=== PATIENT | male | born 1960 | race Two or more races ===

== ENCOUNTER 2019-09-05 12:44 | Inpatient (IN) | payer MEDICAID, OTHER ==
[~2019-09-05] VITALS: Ht 152.4 cm; Wt 85.3 kg
[2019-09-05] MEDS ORDERED: HYDROCODONE/ACETAMINOPHEN 5/325MG TABLET PO STA (13:18)
[2019-09-05 14:43] LABS: BASOPHILS % 0.4 % (0.0-2.0); EOSINOPHILS % 0.8 % (0.0-5.0); HEMATOCRIT. 38.2 % (42.0-52.0); HEMOGLOBIN. 13.2 g/dL (14.0-18.0); LYMPHOCYTES % 11.8 % (20.0-50.0); MEAN CORPUSCULAR HEMOGLOBIN 30.5 pg (28.0-32.0); MEAN CORPUSCULAR VOLUME 88.5 fL (80.0-94.0); MEAN PLATELET VOLUME 6.1 fl (7.4-10.4); MONOCYTES % 6.2 % (2.0-8.0); NEUTROPHILS % 80.8 % (40.0-76.0); PLATELET 234 x1000/uL (130-400); RED BLOOD CELL COUNT 4.32 mill/uL (4.7-6.1); RED CELL DISTRIBUTION WIDTH 12.5 % (11.6-14.6)
[2019-09-05 14:51] LABS: CHLORIDE 108 mEq/L (98-107)
[2019-09-05 14:55] LABS: D-DIMER 1.1 mg/L FEU (<0.50); INR 1.1; PROTHROMBIN TIME 11.5 sec (9.6-11.0)
[2019-09-05] MEDS ORDERED: ONDANSETRON HCL 4MG/2ML INJ IV PRN (17:45)
[2019-09-05] MEDS ORDERED: HYDROCODONE/ACETAMINOPHEN 5/325MG TABLET PO PRN (17:45)
[2019-09-05] MEDS ORDERED: ACETAMINOPHEN 650MG/20.3ML UDC GT PRN (17:45)
[2019-09-05] MEDS ORDERED: MAGNESIUM/ALUMINUM HYDROXIDE/SIMETHICONE 30ML UDC PO PRN (17:45)
[2019-09-05] MEDS ORDERED: CLONIDINE 0.1MG TABLET PO PRN (17:45)
[2019-09-05] MEDS ORDERED: DOCUSATE SODIUM 100MG CAPSULE PO PRN (17:45)
[2019-09-05] MEDS ORDERED: IOHEXOL-350 100 ML BOTTLE ONE (18:56)
[2019-09-05 21:52] VITALS: BP 133/90
[2019-09-05 22:55] VITALS: BP 133/90
[2019-09-06 00:24] LABS: CREATINE KINASE 99 IU/L (39-308)
[2019-09-06 00:26] LABS: CREATINE KINASE MB FRACTION 1.1 ng/mL (0.5-3.6)
[2019-09-06 04:00] VITALS: BP 108/64
[2019-09-06 07:20] LABS: CHLORIDE 108 mEq/L (98-107)
[2019-09-06 07:23] LABS: BASOPHILS % 0.3 % (0.0-2.0); EOSINOPHILS % 3.5 % (0.0-5.0); HEMATOCRIT. 39.5 % (42.0-52.0); HEMOGLOBIN. 13.6 g/dL (14.0-18.0); LYMPHOCYTES % 20.8 % (20.0-50.0); MEAN CORPUSCULAR HEMOGLOBIN 30.8 pg (28.0-32.0); MEAN CORPUSCULAR VOLUME 89.2 fL (80.0-94.0); MEAN PLATELET VOLUME 6.8 fl (7.4-10.4); MONOCYTES % 10.4 % (2.0-8.0); PLATELET 248 x1000/uL (130-400); RED BLOOD CELL COUNT 4.42 mill/uL (4.7-6.1); RED CELL DISTRIBUTION WIDTH 12.8 % (11.6-14.6)
[2019-09-06 07:28] LABS: LDL CHOLESTEROL 125 mg/dL (5-100)
[2019-09-06 07:30] LABS: CREATINE KINASE 84 IU/L (39-308); HDL CHOLESTEROL 42 mg/dL (40-59)
[2019-09-06 07:33] LABS: CREATINE KINASE MB FRACTION < 1.0 ng/mL (0.5-3.6)
[2019-09-06 08:00] VITALS: BP 154/82
[2019-09-06] MEDS ORDERED: PNEUMOCOCCAL 23-VAL P-SAC VAC 0.5 ML IM ONE (08:00)
[2019-09-06] MEDS ORDERED: ATORVASTATIN CALCIUM 20MG TABLET PO SCH (21:00)
== END 2019-09-06 14:35 | disposition home or self-care (01) | DRG 201 ==
LOC: ER 12:44 → 6WST 16:59 → EDBEDREQ 17:01 → ENRESERV 19:47
PROVIDERS: ADMIT Hospitalist; ATTEND Hospitalist
DX: R00.0 Tachycardia, unspecified (principal); E78.5 Hyperlipidemia, unspecified; R07.81 Pleurodynia; Z86.12 Personal history of poliomyelitis
CPT/HCPCS: 36415; 71045; 71275; 80053; 80061; 82550; 82553; 83605; 83880; 84484; 85025; 85379; 87804; 90732; 93005; 93306; 93970; 99285; Q9967